=== PATIENT | male | born 1995 | race African-American/Black ===

== ENCOUNTER 2017-07-06 21:00 | Emergency (ER) | payer OTHER ==
[~2017-07-06] VITALS: Ht 160 cm; Wt 83.2 kg
[2017-07-06 21:03] VITALS: BP 147/103
[2017-07-06] MEDS ORDERED: AZITHROMYCIN 500 MG TABLET PO ONE (21:30)
[2017-07-06] MEDS ORDERED: PLEASE ENTER ALLERGIES MC SCH (21:30)
[2017-07-06] MEDS ORDERED: CEFTRIAXONE 1,000 MG IM ONE (21:30)
[2017-07-06 21:31] LABS: CULTURE INDICATED? YES; MICROSCOPIC AUTO
[2017-07-06] MEDS ORDERED: CEFTRIAXONE 250 MG ONE (21:35)
[2017-07-06] MEDS ORDERED: AZITHROMYCIN 250 MG TABLET ONE (21:36)
== END 2017-07-06 22:18 | disposition home or self-care (01) ==
LOC: ED 22:10
DX: A64 Unspecified sexually transmitted disease (principal); N34.1 Nonspecific urethritis
CPT/HCPCS: 81001; 87086; 87491; 87591; 96372; 99284; J0696